=== PATIENT | male | born 1935 | race Caucasian/White ===

== ENCOUNTER 2016-10-22 07:14 | Day surgery (SDC) | payer MEDICARE, OTHER ==
[~2016-10-22] VITALS: Ht 172.7 cm; Wt 112.5 kg
[~2016-10-22 07:14] MED LIST: CARDURA2 MG PO; CENTRUM SILVER1 EAC3 PO; HYDROCHLOROTHIA25 MG PO; LO-DOSE ASPIRIN81 M1 PO; NORVASC5 MG PO; PRAVASTATIN SOD40 MG PO; SYNTHROID88 MCG PO; VESICARE5 MG PO; VIAGRA100 MG PO
[2016-10-22] MEDS ORDERED: OMEPRAZOLE20 MG PO (07:41)
--- NOTE | 2016-10-22 08:57 | NUR ---
10/22/16 0857 Charito Orlando 9744-PATIENT ARRIVED TO PACU ON 2L NC O2 SAT 95% REACTIVE AND EYES OPEN DROWSY. LAYING ON LEFT LATERAL. PASSING FLATUS.
--- NOTE | 2016-10-22 09:44 | NUR ---
PT ALERT AND ORIENTED. HE IS SUPPORTED BY HIS . THEY BOTH SEEMED INFORMED, AND HAVE HAD SCOPES PREVIOUS. THIS IS SCHEDULED TO BE ROUTINE. PT DECLINED PRAYER AT THIS TIME. THANKED ME FOR THE VISIT
--- NOTE | 2016-11-01 12:08 | OR ---
[facility] [address], [place] [address] Signed DATE OF SERVICE: 10/22/2016 PREOPERATIVE DIAGNOSES: Personal history of colonic polyps. Right and left-sided diverticulosis. POSTOPERATIVE DIAGNOSES: A 7-mm sessile polyp, proximal right colon. A 5-mm sessile polyp at 75 cm. Tattoo at 70 cm. Right and left-sided moderate diverticulosis. Moderate internal hemorrhoids. PROCEDURE: Colonoscopy, snare polypectomy, and hot biopsy. ESTIMATED BLOOD LOSS: None. 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 He remains very active and he has good functional status. He and his were traveling around the world and enjoying that very much. We know from his personal history of colonic polyps as far back as 2000. He has had hyperplastic up to two villous adenomatous polyps removed. We know he has a tattoo around 70 cm. He also has right left-sided diverticulosis. He returns now for his followup colonoscopy. He has no lower GI complaints. I met with Hussain and his in the office, I gave him a pamphlet on colonoscopy and we reviewed the nature of the test along with its risks including, but not limited to gas bloating, crampy abdominal pain bleeding perforation requiring surgery, and missed diagnosis. We also discussed the need for IV conscious sedation. B ob has done well with Versed a nd fentanyl in the past. He had expressed understanding wished to proceed. PROCEDURE NOTE: Hussain was taken into our endoscopy suite and placed in the left lateral decubitus position. He was given divided doses of 150 mcg of fentanyl and 5 mg of Versed. A digital rectal exam was performed and this was unremarkable. The adult colonoscope was introduced and advanced under direct visualization of the camera. He had some buckling back in the sigmoid colon and it took some extra sedation and abdominal compression , and rotating Hussain into the supine position, in order to get the scope to pass into the cecum itself. His prep was good. The scope was then slowly withdrawn. On the 1st fold distal to the ileocecal valve, he had a 7 mm sessile polyp. We used a combination of hot biopsy forceps and snare to remove that completely. We suctioned through the scope and caught it in our trap. Hemostasis was excellent. Scope was withdrawn further and we saw Electronically Signed By: SHILOH BENAVIDES MD 11/01/16 1208 PATIENT NAME: MARVIN HARTLEY OPERATIVE REPORT DATE OF : 39 PHYSICIAN: SHILOH BENAVIDES MD REPORT #: [id number] REPORT IS CONFIDENTIAL AND NOT TO BE RELEASED WITHOUT AUTHORIZATION [facility] [address], [place] [address] Signed small 5 mm sessile polyp at about 75 cm. I t was easily removed with a hot biopsy forceps. In the right at about 70 cm he has a tattoo from before. We looked at very carefully and we saw no evidence of any recurrent polyp. Once again, he has moderate right and left-sided diverticulosis. The rectum itself was unremarkable. Upon retroflexion of scope, he does have moderate internal hemorrhoid columns. After this, the gas was suctioned out, the colonoscope removed. Marvin tolerated his procedure quite well. RECOMMENDATIONS: I will see Hussain back in the office in 7 to 14 days to review his results. He can resume his aspirin in 1 week. MD RE Pedersen/Zahida /[id number] cc: MD Dr. Eldon Brownlee Electronically Signed By: SHILOH BENAVIDES MD 11/01/16 1208 PATIENT NAME: NAEEMMARVIN Na OPERATIVE REPORT DATE OF : 39 PHYSICIAN: SHILOH BENAVIDES MD REPORT #: [id number] REPORT IS CONFIDENTIAL AND NOT TO BE RELEASED WITHOUT AUTHORIZATION
== END 2016-10-22 09:39 | disposition home or self-care (01) ==
LOC: DS 07:14 → OPS 07:14 → DS 08:15 → OPS 09:39
PROVIDERS: Colon & Rectal Surgery
PROC: 0DBE8ZX Excision of Large Intestine, Via Natural or Artificial Opening Endoscopic, Diagnostic (ICD-10-PCS; 2016-10-22)
PROC: 0DBF8ZX Excision of Right Large Intestine, Via Natural or Artificial Opening Endoscopic, Diagnostic (ICD-10-PCS; principal; 2016-10-22 08:15)
DX: D12.6 Benign neoplasm of colon, unspecified (principal); D18.09 Hemangioma of other sites; K57.30 Diverticulosis of large intestine without perforation or abscess without bleeding; K64.8 Other hemorrhoids; I10 Essential (primary) hypertension; K21.9 Gastro-esophageal reflux disease without esophagitis; N40.0 Benign prostatic hyperplasia without lower urinary tract symptoms; E78.5 Hyperlipidemia, unspecified; E66.9 Obesity, unspecified; E03.9 Hypothyroidism, unspecified; G89.29 Other chronic pain; M25.561 Pain in right knee; Z86.010 Personal history of colon polyps; Z90.89 Acquired absence of other organs; Z98.890 Other specified postprocedural states; Z88.1 Allergy status to other antibiotic agents; Z88.5 Allergy status to narcotic agent; Z79.82 Long term (current) use of aspirin; Z79.899 Other long term (current) drug therapy; Z68.37 Body mass index [BMI] 37.0-37.9, adult
CPT/HCPCS: 88305; 99152; 99153; J2250; J3010

== ENCOUNTER 2022-05-08 05:50 | Day surgery (SDC) | payer MEDICARE, OTHER ==
[~2022-05-08] VITALS: Ht 172.7 cm; Wt 111.4 kg
[~2022-05-08 05:50] MED LIST changes: +ELIQUIS5 MG PO; +FLONASE ALLERG9.9 ML NAS; +OMEPRAZOLE20 MG PO; +OSTERA TABLET1 EACH PO; +PROSCAR5 MG PO
[2022-05-08] MEDS ORDERED: CHONDROITIN SU MISC (06:16)
--- NOTE | 2022-05-08 08:27 | NUR ---
05/08/22 0827 Hailee Dong 0818 PATIENT ARRIVES TO PACU UNRESPONSIVE TO VERBAL STIMULI. RESP EVEN AND UNLABORED, ROOM AIR SATS 91%, NC ON AT 2 LITERS. 0823 PATIENT OPENS EYES TO VERBAL STIMULI. SMALL BILE EMESIS. FOLLOWS COMMANDS TO COUGH. DENIES NAUSEA. RESTING WITH EYES CLOSED WHEN NOT STIMULATED. RESP EVEN AND UNLABORED, NC CONTINUES AT 2 LITERS. HOB ELEVATED AFTER EMESIS.
--- NOTE | 2022-05-08 09:50 | OR ---
[facility] [address], [place] [address] Signed DATE OF OPERATION: 05/08/2022 SURGEON: Shiloh Benavides MD PREOPERATIVE DIAGNOSES: 1. Personal history of multiple colonic polyps starting in 2000 at age 65. 2. Right and left-sided diverticulosis. 3. Eyzvyfk-mo-rrlpffek internal hemorrhoids. 4. Tattoo at 70 cm. POSTOPERATIVE DIAGNOSES: 1. Cjjr-ug-zivtzjdh right and left-sided diverticulosis. 2. 5 mm polyp, proximal right colon. 3. 4 mm polyps x2 at 80 cm. 4. Tattoo at 70 cm. 5. 15-20 mm pedunculated polyp at 18 cm in the distal sigmoid colon (snare). 6. Jsdfgfw-hi-chomwfca internal hemorrhoids. PROCEDURE: Colonoscopy with hot biopsy and snare polypectomy. ESTIMATED BLOOD LOSS: None. INDICATIONS: Marvin is an 86-year-old gentleman who I have known for many years. 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 His , June always comes with him. His father happened to live into his 90s. Hussain's overall functional status has declined, but he still maintains good muscle mass. 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 He is also hard of hearing. He had gone to see Dr. Chris Orellana in 2000 at the age of 65. He had a tubulovillous adenomatous polyp taken out of the rectum as well as other tubular adenomatous polyps removed. He has always done well with Versed, Demerol, and fentanyl. I have helped Hussain with colonoscopies in 2006, 2007, 2008, 2011 and 2017. He has had multiple polyps removed during that time including hyperplastic polyps, serrated adenomas polyps, adenomatous polyps and tubulovillous adenomas polyps. Once again he has the right and left-sided diverticulosis. He does have a tattoo up at 70 cm from back in 2006. It has been quite healthy since that time. He always has internal hemorrhoids, but they never bother him. He said he has no lower GI complaints. To his knowledge there is no family history of colon cancer or polyps. In the office I gave Hussain and June a pamphlet on colonoscopy. They are very familiar with this process. We Electronically Signed By: SHILOH BENAVIDES MD 05/08/22 0950 PATIENT NAME: MARVIN HARTLEY OPERATIVE REPORT DATE OF : 39 REPORT #: [id number] PHYSICIAN: SHILOH BENAVIDES MD PCP: PORFIRIO CASTANEDA MD REPORT IS CONFIDENTIAL AND NOT TO BE RELEASED WITHOUT AUTHORIZATION [facility] [address] [place], [place] [address] Signed talked about polyps growing and become cancer over 8-12 years. Generally when a person is within 8-12 years of the end of the life, they do not have to undergo repeat colonoscopies. However Hussain has had significant polyps each and every time he has come for colonoscopies. He is still doing very well and we decided we would do maybe his final colonoscopy. He knows there is risk including, but not limited to gas bloating, crampy abdominal pain, bleeding, perforation requiring surgery, and missed diagnosis. In the meantime, he has developed atrial fibrillation and his overall functional status is starting to decline. He also has a very full round face with a heavy chest and abdomen. We decided monitored anesthesia care was safest for him at this time. He has expressed understanding and wished to proceed. PROCEDURE IN DETAIL: Husasin was taken into our endoscopy suite and placed in the left lateral decubitus position. He was given monitored anesthesia care with propofol per our nurse surgical technology instructor. A digital rectal exam was performed and this was unremarkable. No external hemorrhoids. Good sphincter tone. I did feel a little bit of particulate stool matter in the rectum. The adult colonoscope was introduced and advanced under direct visualization up into the cecum itself. We had to rotate Hussain into the supine position with some abdominal compression in order to get the scope directly into the cecum itself. His prep was quite good as always. We could easily see the appendiceal orifice and ileocecal valve. Again, he has moderate right and left-sided diverticula. They are moderate in size, few to moderate in number, and scattered about. The scope was then slowly withdrawn. We used a hot biopsy forceps to remove the small polyp in the proximal right colon as well as at 80 cm in the very proximal left colon are very distal transverse colon. We once again saw the tattoo at 70 cm. And then down at 18 cm, he had a fairly large 15-20 mm pedunculated polyp. He does not have a distinct rectosigmoid junction. However, it looks like this is in his distal sigmoid colon. We used the snare twice to remove it in pieces and then we removed the base with the help of hot biopsy forceps. The entire polyp was completely destroyed in this way. The rectum itself was unremarkable. We irrigate and push some of that stool around and we were convinced we did not have any concerning lesions in the rectum. Upon retroflexion of scope again he has minimal to moderate internal hemorrhoid columns. After this, the gas was suctioned out, colonoscope removed. Hussain tolerated the procedure quite well. RECOMMENDATIONS: I will see Hussain back in my office in 7 to 14 days to review his results. Shiloh Benavides MD Electronically Signed By: SHILOH BENAVIDES MD 05/08/22 0950 PATIENT NAME: MARVIN HARTLEY OPERATIVE REPORT DATE OF : 39 REPORT #: [id number] PHYSICIAN: SHILOH BENAVIDES MD PCP: PORFIRIO CASTANEDA MD REPORT IS CONFIDENTIAL AND NOT TO BE RELEASED WITHOUT AUTHORIZATION [address], [place] [address] Signed ALB/MODL /[id number] cc: MD Shiloh Graf MD Copies: PORFIRIO CASTANEDA MD, ANDREW L MD ~ Electronically Signed By: SHILOH BENAVIDES MD 05/08/22 0950 PATIENT NAME: MARVIN HARTLEY OPERATIVE REPORT DATE OF : 39 REPORT #: [id number] PHYSICIAN: SHILOH BENAVIDES MD PCP: PORFIRIO CASTANEDA MD REPORT IS CONFIDENTIAL AND NOT TO BE RELEASED WITHOUT AUTHORIZATION
--- NOTE | 2022-05-08 10:50 | NUR ---
PT TAKEN BY OR STAFF FOR PROCEDURE, CONNECTED WITH IN [facility]. GAVE ENCOURAGEMENT, SHE WANTS TO STAY IN [place] UNTIL DC. GAVE BLESSING AND WILL FOLLOW
--- NOTE | 2022-05-10 17:07 | PATH ---
[facility] [address] [place], [place] [address] Signed SPECIMEN(S): A PROXI ASCENDING/RIGHT COLON POLYP SPECIMEN(S): B COLON POLYPS AT 80CM SPECIMEN(S): C DISTAL SIGMOID POLYPS AT 18CM SPECIMEN SOURCE: A. PROXI ASCENDING/RIGHT COLON POLYP B. COLON POLYPS AT 80CM C. DISTAL SIGMOID POLYPS AT 18CM CLINICAL HISTORY: History of polyps, diverticulosis, internal hemorrhoids. Postop: Diverticulosis, colon and rectal polyps, internal hemorrhoids FINAL PATHOLOGIC DIAGNOSIS: A. Proximal ascending / right colon polyp: - Tubular adenoma (one fragment). B. Colon polyps at 80 cm: - Tubular adenoma (one fragment). - Serrated polyp / adenoma (one fragment). C. Distal sigmoid polyps at 18 cm: - Tubulovillous adenoma (multiple fragments). JVR:[facility]:C2NR MICROSCOPIC EXAMINATION: Histologic sections of all submitted blocks are examined by light microscopy. These findings, together with the gross examination, support the pathologic diagnosis. GROSS DESCRIPTION: A. The specimen, labeled and designated "Marvin Hartley, 1," and designated on the requisition as "proximal ascending/right polypectomy"," is received in formalin and consists of one fang 0.3 cm in greatest dimension soft tissue fragment. The specimen is submitted in toto in cassette (A1). B. The specimen, labeled and designated "Marvin Hartley, 2," and designated on the requisition as "colon polyp at 80 cm"," is received in formalin and consists of multiple fang soft tissue fragments measuring less than 0.1 to 0.4 cm. The specimen is inked with eosin and submitted in toto in (B1). C. The specimen, labeled and designated "Marvin Hartley, 3," and designated on the requisition as "distal sigmoid polyp at 18 cm"," is received in formalin PATIENT NAME: MARVIN HARTLEY PATHOLOGY DATE OF : 39 REPORT #: [id number] PHYSICIAN: ABHI DUPONT PCP: PORFIRIO CASTANEDA MD REPORT IS CONFIDENTIAL AND NOT TO BE RELEASED WITHOUT AUTHORIZATION [facility] [address] [place], [place] [address] Signed and consists of multiple polypoid fang rubbery tissue fragments measuring less than 0.1 up to 1.5 cm. The resection margin of the two largest polyps are inked blue. The specimen is submitted entirely as follows: Cassette Summary: (C1) one polyp bisected (C2) one polyp bisected (C3) remaining specimen AI (under the direct supervision of a pathologist) The Gross Description was prepared using a voice recognition system. The report was reviewed for accuracy; however, sound-alike word errors, addition and/or deletions may occur. If there is any question about this report, please contact Client Services. PERFORMING LABORATORY: The technical component was performed by [facility], [address] [place] [id number] (CLIA# [id number]). Professional interpretation was performed by [facility], [address] [place] [id number] (CLIA#: [id number]). Diagnostician: Carlton Chauhan MD Pathologist Electronically Signed 05/10/2022 Copies: ~ PATIENT NAME: MARVIN HARTLEY Na PATHOLOGY DATE OF : 39 REPORT #: [id number] PHYSICIAN: ABHI PATHOLOGY PCP: PORFIRIO CASTANEDA MD REPORT IS CONFIDENTIAL AND NOT TO BE RELEASED WITHOUT AUTHORIZATION
== END 2022-05-08 09:30 | disposition home or self-care (01) ==
LOC: DS 05:50
PROVIDERS: ATTEND Colon & Rectal Surgery
PROC: 0DBL8ZX Excision of Transverse Colon, Via Natural or Artificial Opening Endoscopic, Diagnostic (ICD-10-PCS; 2022-05-08)
PROC: 0DBK8ZX Excision of Ascending Colon, Via Natural or Artificial Opening Endoscopic, Diagnostic (ICD-10-PCS; principal; 2022-05-08 07:30)
DX: Z12.11 Encounter for screening for malignant neoplasm of colon (principal); D12.2 Benign neoplasm of ascending colon; D12.6 Benign neoplasm of colon, unspecified; D12.5 Benign neoplasm of sigmoid colon; K57.30 Diverticulosis of large intestine without perforation or abscess without bleeding; K64.0 First degree hemorrhoids; J44.9 Chronic obstructive pulmonary disease, unspecified; I10 Essential (primary) hypertension; E66.9 Obesity, unspecified; I48.91 Unspecified atrial fibrillation; N40.0 Benign prostatic hyperplasia without lower urinary tract symptoms; K21.9 Gastro-esophageal reflux disease without esophagitis; E78.5 Hyperlipidemia, unspecified; E03.9 Hypothyroidism, unspecified; Z86.010 Personal history of colon polyps; Z79.01 Long term (current) use of anticoagulants; Z79.82 Long term (current) use of aspirin; Z88.5 Allergy status to narcotic agent; Z88.8 Allergy status to other drugs, medicaments and biological substances
CPT/HCPCS: 00811; J0690; J2704; J7121

== ENCOUNTER 2023-10-16 13:22 | Emergency (ER) | payer MEDICARE, OTHER ==
[~2023-10-16] VITALS: Ht 172.7 cm; Wt 106.8 kg
[~2023-10-16 13:22] MED LIST changes: +CHONDROITIN SU MISC
[2023-10-16 13:48] LABS: PH, VENOUS 7.452 (7.31-7.41)
[2023-10-16] MEDS ORDERED: VENLAFAXINE H37.5 M1 PO (13:48)
[2023-10-16] MEDS ORDERED: DONEPEZIL HCL10 MG PO (13:48)
[2023-10-16 13:51] LABS: BASOPHILS 0.3 % (0-2); EOSINOPHILS 0.5 % (0-6); HEMATOCRIT 46.8 % (35.0-50.0); HEMOGLOBIN 15.7 g/dL (12.0-18.0); LYMPHOCYTES 9.2 % (24-44); MCH 29.1 (27-36); MCHC 33.5 g/dl (30-36); PLATELET COUNT 238 K/uL (140-440); RBC 5.38 M/ul (4.3-5.7); RDW 14.1 (10.5-15.0)
[2023-10-16 14:15] LABS: ALBUMIN 3.6 g/dL (3.4-5.0); ALBUMIN/GLOBULIN RATIO 1.16 (1.1-2.4); ANION GAP 12.4 (7-21); BILIRUBIN, TOTAL 1.1 ng/dL (0.2-1.0); BUN/CREATININE RATIO 18.86 (6.0-28.6); CALCIUM 9.2 mg/dL (8.5-10.1); CREATININE, SERUM 1.06 mg/dL (0.70-1.30); POTASSIUM 3.4 mmol/L (3.5-5.1); PROTEIN, TOTAL 6.7 g/dL (6.4-8.2); TSH, 3RD GENERATION 1.448 uIU/mL (0.358-3.740)
[2023-10-16 15:44] LABS: BILIRUBIN, URINE NEGATIVE (negative); BLOOD/HGB, URINE NEGATIVE (Negative); KETONE, URINE TRACE (Negative); LEUK ESTERASE, URINE NEGATIVE (negative); NITRITE, URINE NEGATIVE (negative)
[2023-10-16 15:51] LABS: BACTERIA, URINE RARE /hpf (negative); CASTS, URINE HYALINE 1+ \\lpf; COLLECTION TYPE, URINE CLEAN CATCH; CRYSTALS, URINE NONE SEEN (0-1+); EPITHELIAL CELLS, URINE SQUAMOUS 2+ /lpf (0-1+); RED BLOOD CELLS, URINE 0-1 /hpf (0-5); REFLEX CULTURE, URINE No (No); WHITE BLOOD CELLS, URINE 0-1 /HPF (0-5)
[2023-10-16] MEDS ORDERED: ZITHROMAX250 MG PO (16:25)
[2023-10-16 17:03] VITALS: BP 141/81
--- NOTE | 2023-10-17 22:41 | EKG ---
[facility] [address] [facility] [place] [address] Signed Atrial fibrillation with slow ventricular response Low voltage QRS Abnormal ECG When compared with ECG of 30-APR-2022 10:46, No significant change was found Confirmed by Porfirio Esquivel MD () on 10/17/2023 10:41:51 PM Electronically Signed By: PORFIRIO ESQUIVEL MD 10/17/232240 PATIENT NAME: MARVIN HARTLEY Electrocardiogram DATE OF : 39 PHYSICIAN: PORFIRIO ESQUIVEL MD REPORT #: [id number] REPORT IS CONFIDENTIAL AND NOT TO BE RELEASED WITHOUT AUTHORIZATION
== END 2023-10-16 17:06 | disposition home or self-care (01) ==
LOC: ED 13:22
PROVIDERS: Emergency Medicine
DX: J18.9 Pneumonia, unspecified organism (principal); Z79.51 Long term (current) use of inhaled steroids; Z79.899 Other long term (current) drug therapy; Z88.5 Allergy status to narcotic agent; Z88.8 Allergy status to other drugs, medicaments and biological substances
CPT/HCPCS: 36415; 51701; 70450; 71045; 72125; 80053; 81001; 82140; 82803; 83605; 84443; 85025; 93005; 93010; 99285-25

== ENCOUNTER 2024-01-21 12:41 | Emergency (ER) | payer MEDICARE, OTHER ==
[~2024-01-21] VITALS: Ht 172.7 cm; Wt 101.8 kg
[~2024-01-21 12:41] MED LIST changes: +DONEPEZIL HCL10 MG PO; +VENLAFAXINE H37.5 M1 PO; +ZITHROMAX250 MG PO
[2024-01-21 13:00] LABS: BASOPHILS 0.4 % (0-2); EOSINOPHILS 1.6 % (0-6); HEMATOCRIT 41.2 % (35.0-50.0); HEMOGLOBIN 14.4 g/dL (12.0-18.0); LYMPHOCYTES 11.5 % (24-44); MCH 29.6 (27-36); MCHC 34.9 g/dl (30-36); MCV 84.7 fl (81-99); MONOCYTES 7.1 % (0-12); NEUTROPHILS 79.4 % (39-80); PLATELET COUNT 365 K/uL (140-440); RBC 4.86 M/ul (4.3-5.7); RDW 14.7 (10.5-15.0)
[2024-01-21] MEDS ORDERED: IBLOOD GLUCOSE TEST STRIP 1 EA TEST VI ONE (13:00)
[2024-01-21 13:17] LABS: ALBUMIN 2.8 g/dL (3.4-5.0); ALBUMIN/GLOBULIN RATIO 0.68 (1.1-2.4); ALCOHOL, MEDICAL <3 ng/dL (<3); ALKALINE PHOSPHATASE 61 U/L (46-116); ALT (SGPT) 36 U/L (14-59); ANION GAP 11.2 (7-21); AST (SGOT) 18 U/L (15-37); BILIRUBIN, TOTAL 0.7 ng/dL (0.2-1.0); BUN/CREATININE RATIO 14.11 (6.0-28.6); CALCIUM 9.9 mg/dL (8.5-10.1); CARBON DIOXIDE 30 mmol/L (21-32); CHLORIDE 98 mmol/L (98-107); CREATININE, SERUM 0.85 mg/dL (0.70-1.30); GLOMERULAR FILTRATION RATE,EST 85 mL/min (>60); POTASSIUM 3.2 mmol/L (3.5-5.1); PROTEIN, TOTAL 6.9 g/dL (6.4-8.2); UREA NITROGEN 12 mg/dL (7-18)
[2024-01-21 13:37] LABS: BILIRUBIN, URINE NEGATIVE (negative)
[2024-01-21 13:38] LABS: BLOOD/HGB, URINE SMALL (Negative); COLLECTION TYPE, URINE CATH; KETONE, URINE NEGATIVE (Negative); NITRITE, URINE NEGATIVE (negative); PH, URINE 8 (5-7)
[2024-01-21 13:39] LABS: LEUK ESTERASE, URINE POSITVE (negative)
[2024-01-21 13:43] LABS: BACTERIA, URINE 2+ /hpf (negative); CASTS, URINE NONE SEEN \\lpf; CRYSTALS, URINE NONE SEEN (0-1+); EPITHELIAL CELLS, URINE 0 /lpf (0-1+); REFLEX CULTURE, URINE Yes (No); WHITE BLOOD CELLS, URINE >50 /HPF (0-5)
[2024-01-21 13:45] LABS: AMPHETAMINES, URINE NEGATIVE (NEGATIVE); BARBITURATES, URINE NEGATIVE (NEGATIVE); BENZODIAZEPINE, URINE NEGATIVE (NEGATIVE); BUPRENORPHINE, URINE NEGATIVE (NEGATIVE); CANNABINOID, URINE NEGATIVE (NEGATIVE); COCAINE, URINE NEGATIVE (NEGATIVE); ECSTASY, URINE NEGATIVE (NEGATIVE); FENTANYL, URINE NEGATIVE (NEGATIVE); METHADONE, URINE NEGATIVE (NEGATIVE); OPIATES, URINE NEGATIVE (NEGATIVE); OXYCODONE, URINE NEGATIVE (NEGATIVE); PHENCYCLIDINE, URINE NEGATIVE (NEGATIVE)
[2024-01-21] MEDS ORDERED: CEFTRIAXONE/SODIUM CHLORIDE 2 GM/100 ML PIGGYBACK IV ONE (14:15)
[2024-01-21] MEDS ORDERED: CEFDINIR300 MG PO (14:55)
[2024-01-21 15:41] VITALS: BP 131/67
--- NOTE | 2024-01-22 21:40 | EKG ---
[facility] [address] [facility] [place] [address] Signed Atrial fibrillation Low voltage QRS Possible Inferior infarct , age undetermined Abnormal ECG When compared with ECG of 16-OCT-2023 13:44, Borderline criteria for Inferior infarct are now present Nonspecific T wave abnormality, worse in Anterolateral leads Confirmed by Yessy Patel MD ([id number]) on 01/22/2024 9:40:47 PM Electronically Signed By: YESSY PATEL DO 01/22/242139 PATIENT NAME: MARVIN HARTLEY Electrocardiogram DATE OF : 39 PHYSICIAN: YESSY PATEL DO REPORT #: [id number] REPORT IS CONFIDENTIAL AND NOT TO BE RELEASED WITHOUT AUTHORIZATION
== END 2024-01-21 16:05 | disposition home or self-care (01) ==
LOC: ED 12:41
PROVIDERS: Emergency Medicine
DX: N39.0 Urinary tract infection, site not specified (principal); F03.90 Unspecified dementia, unspecified severity, without behavioral disturbance, psychotic disturbance, mood disturbance, and anxiety; I48.91 Unspecified atrial fibrillation; Z88.5 Allergy status to narcotic agent; Z88.8 Allergy status to other drugs, medicaments and biological substances; Z79.01 Long term (current) use of anticoagulants; Z79.890 Hormone replacement therapy; Z79.899 Other long term (current) drug therapy
CPT/HCPCS: 36415; 51701; 71045; 80053; 80307; 81001; 84484; 85025; 87088; 93005; 93010; 99285-25; G0480; J0696

== ENCOUNTER 2024-02-06 13:59 | Emergency (ER) | payer MEDICARE, OTHER ==
[~2024-02-06] VITALS: Ht 172.7 cm; Wt 80.0 kg
[~2024-02-06 13:59] MED LIST changes: +CEFDINIR300 MG PO
--- OUTSIDE RECORDS SUMMARY | 2024-02-06 14:06 | XMS ---
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 - 2 Visits in 30 Days CARE PROVIDERS [facility] Current PHONE: Unknown Man has no Care Guidelines for this patient. Chip VISIT COUNT (12 MO.) 3 [facility] TOTAL 3 NOTE: Visits indicate total known visits. ED/UCC VISIT TRACKING (12 MO.) 02/06/2024 14:00 [facility] TYPE: Emergency COMPLAINT: - ALTERED LOC 01/21/2024 12:41 [facility] TYPE: Emergency COMPLAINT: - ALTERED LOC DIAGNOSES: - Allergy status to narcotic agent - Allergy status to other drugs, medicaments and biological substances - Hormone replacement therapy - MCFP (current) use of anticoagulants - Other mcc (current) drug therapy - Transient alteration of awareness - Unspecified atrial fibrillation - Unspecified dementia, unspecified severity, without behavioral disturbance, psychotic disturbance, mood disturbance, and anxiety - Urinary tract infection, site not specified 10/16/2023 13:22 [facility] [place] TYPE: Emergency COMPLAINT: - WEAKNESS DIAGNOSES: - Allergy status to narcotic agent - Allergy status to other drugs, medicaments and biological substances - MCFP (current) use of inhaled steroids - Other mcc (current) drug therapy - Pneumonia, unspecified organism - Weakness INPATIENT VISIT TRACKING (12 MO.) No inpatient visits to display in this time frame [email or web address]
[2024-02-06 14:12] LABS: BASOPHILS 0.6 % (0-2); EOSINOPHILS 0.4 % (0-6); HEMATOCRIT 41.7 % (35.0-50.0); HEMOGLOBIN 14.5 g/dL (12.0-18.0); LYMPHOCYTES 7.5 % (24-44); MCH 29.7 (27-36); MCHC 34.9 g/dl (30-36); MCV 85.3 fl (81-99); MONOCYTES 8.1 % (0-12); NEUTROPHILS 83.4 % (39-80); PLATELET COUNT 292 K/uL (140-440); RBC 4.89 M/ul (4.3-5.7); RDW 15.2 (10.5-15.0)
[2024-02-06] MEDS ORDERED: SODIUM CHLORIDE 0.9% 1,000 ML IV ONE (14:15)
[2024-02-06 14:25] LABS: ALBUMIN 3.1 g/dL (3.4-5.0); ALBUMIN/GLOBULIN RATIO 0.86 (1.1-2.4); BUN/CREATININE RATIO 15.29 (6.0-28.6); CALCIUM 9.6 mg/dL (8.5-10.1); CREATININE, SERUM 0.85 mg/dL (0.70-1.30); PROTEIN, TOTAL 6.7 g/dL (6.4-8.2)
[2024-02-06] MEDS ORDERED: LIDOCAINE 2% VISCOUS 6 ML SYR TOP ONE (14:30)
[2024-02-06 14:41] LABS: BILIRUBIN, URINE NEGATIVE (negative); BLOOD/HGB, URINE NEGATIVE (Negative); KETONE, URINE NEGATIVE (Negative); LEUK ESTERASE, URINE NEGATIVE (negative); NITRITE, URINE NEGATIVE (negative)
[2024-02-06 17:15] VITALS: BP 153/81
== END 2024-02-06 17:12 | disposition home or self-care (01) ==
LOC: ED 13:59
PROVIDERS: Emergency Medicine
DX: F03.90 Unspecified dementia, unspecified severity, without behavioral disturbance, psychotic disturbance, mood disturbance, and anxiety (principal); Z66 Do not resuscitate; Z88.5 Allergy status to narcotic agent; Z88.8 Allergy status to other drugs, medicaments and biological substances; Z79.899 Other long term (current) drug therapy; Z79.01 Long term (current) use of anticoagulants; Z79.890 Hormone replacement therapy
CPT/HCPCS: 36415; 51701; 71045; 80053; 81003; 85025; 99284-25; J7030